=== PATIENT | female | born 1990 | race Caucasian/White ===

== ENCOUNTER 2017-01-15 18:24 | Emergency (ER) | payer OTHER, BC ==
[~2017-01-15] VITALS: Ht 165.1 cm; Wt 54.4 kg
--- NOTE | 2017-01-15 18:28 | NUR ---
PT BIB SELF 1.5CM LACERATION TO WEBBING BETWEEN L 1ST AND 2ND DIGIT. VSS. APPLIED DRESSIING TO WOUND. AWAITING MD ORDER
--- NOTE | 2017-01-15 19:07 | NUR ---
GIVEN REPORT TO ARNOL MONTELONGO FOR MATTHEW
--- NOTE | 2017-01-15 19:14 | NUR ---
DRY DRESSING PLACED ON AREA. DRESSING INTACT AND CLEAN, NO BLEEDING. Patient discharged to home in stable condition. Written and verbal after care instructions given. Patient verbalizes understanding of instruction. Patient is ambulatory with steady gait , no further complaints.
[2017-01-15 19:16] VITALS: BP 122/64
== END 2017-01-15 19:16 | disposition home or self-care (01) ==
LOC: ER 18:27
DX: S61.412A Laceration without foreign body of left hand, initial encounter (principal); J45.909 Unspecified asthma, uncomplicated; F32.9 Major depressive disorder, single episode, unspecified; F42.9 Obsessive-compulsive disorder, unspecified; Z88.0 Allergy status to penicillin; W45.8XXA Other foreign body or object entering through skin, initial encounter; Y93.89 Activity, other specified; Y92.89 Other specified places as the place of occurrence of the external cause; Y99.8 Other external cause status
CPT/HCPCS: 12001; 99283; A4606; A6403; Z7610